=== PATIENT | female | born 1970 | race Hispanic/Latino ===

== ENCOUNTER 2017-06-28 12:21 | Emergency (ER) | payer SELFPAY ==
[2017-06-28 12:27] VITALS: BMI 36.8
[2017-06-28 12:35] VITALS: RESP 18; TEMP 99.7; O2SAT 98
[2017-06-28] MEDS ORDERED: Sodium Chloride 0.9% 1,000 ML IV STA ×2 (12:40→13:52)
[2017-06-28 13:08] LABS: BASO # 0.01 K/mm3 (0.0-2.0); BASO % 0.1 % (0.0-3.0); EOS # 0.1 (0.0-0.7); EOS % 1.4 % (1.5-5.0); GRAN # 7.18 (1.4-6.5); GRAN % 82.1 % (50.0-68.0); HEMOGLOBIN 15.4 gm/dL (12.0-16.0); LYMPH % 11.1 % (22.0-35.0); MEAN CELL VOLUME 89.5 fL (80.0-105.0); MEAN CORPUSCULAR HEMOGLOBIN 30.6 pg (25.0-35.0); MEAN CORPUSCULAR HGB CONC 34.2 g/dl (31.0-37.0); MEAN PLATELET VOLUME 10.1 fl (7.0-11.0); MONO # 0.5 (0.1-0.6); MONO % 5.3 % (1.0-6.0); PLATELET COUNT 255 10^3/uL (120.0-450.0); RBC 5.03 10^6/uL (3.5-6.1); RED CELL DISTRIBUTION WIDTH 13.2 % (11.5-14.5); WHITE BLOOD COUNT 8.7 10^3/ul (4.5-11.0)
[2017-06-28 13:08] LABS: URINE APPEARANCE CLEAR (CLEAR); URINE BILIRUBIN SMALL (NEGATIVE); URINE BLOOD NEGATIVE (NEGATIVE); URINE COLOR YELLOW (YELLOW); URINE GLUCOSE (UA) NEGATIVE (NEGATIVE); URINE LEUKOCYTE ESTERASE TRACE Leu/uL (NEGATIVE); URINE NITRATE NEGATIVE (NEGATIVE); URINE PROTEIN 30 mg/dL (<30 mg/dL)
[2017-06-28 13:17] LABS: URINE RBC 0 - 2 /hpf (0-2)
[2017-06-28 13:18] LABS: URINE BACTERIA SMALL (NEG)
[2017-06-28 13:26] LABS: ALB/GLOB RATIO 1.4 (1.1-1.8); ALBUMIN 4.4 g/dL (3.0-4.8); ALT/SGPT 27 U/L (7-56); AST/SGOT 26 U/L (15-39); BLOOD UREA NITROGEN 16 mg/dL (7-21); CALCIUM 9.3 mg/dL (8.4-10.5); GFR AFRICAN-AMERICAN > 60; GFR NON-AFRICAN AMERICAN > 60; LIPASE 54 U/L (23-300); MAGNESIUM 1.6 mg/dL (1.7-2.2)
--- NOTE | 2017-06-28 13:44 | ED PDOC ---
Arrival/HPI - General Chief Complaint: GI Problem Time Seen by Provider: 06/28/17 12:30 Historian: Patient - History of Present Illness Narrative History of Present Illness (Text): 06/28/17 13:45 Faith Lombardi is a 47 year old female with a history of hypertension and GERD, presents to the emergency department complaining of abdominal pain associated with nausea, vomiting and diarrhea since yesterday. Denies any sick contacts at home. She also complains of some throat discomfort for past few days. Denies any fever, chills, dizziness, chest pain, shortness of breath, urinary symptoms , or any other complaints at this time. 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 - Renal Hx Renal Disorder: No - Endocrine/Metabolic Hx Endocrine Disorders: No - Hematological/Oncological Hx Blood Disorders: No Other/Comment: MRSA - Integumentary Hx Dermatological Disorder: No - Musculoskeletal/Rheumatological Hx Musculoskeletal Disorders: Yes Hx Arthritis: Yes Hx Back Pain: Yes Hx Falls: No Hx Herniated Disk: Yes Other/Comment: WEAKNESS ON LEFT SIDE OF ARM DUE TO ARTHRITIS - Gastrointestinal Hx Gastrointestinal Disorders: Yes Hx Gastroesophageal Reflux: Yes Other/Comment: GERD - Genitourinary/Gynecological Hx Genitourinary Disorders: No Hx Urinary Tract Infection: Yes - Psychiatric Hx Psychophysiologic Disorder: No Hx Anxiety: Yes Hx Depression: No Hx Emotional Abuse: No Hx Physical Abuse: No Hx Substance Use: No - Past Surgical History Past Surgical History: No Previous - Surgical History Hx Cholecystectomy: Yes Hx Eye Surgery: Yes (right eye MRSA) Other/Comment: INSERTION AND REMOVAL OF PICCLINE;RIGHT EYE SURGERY - Anesthesia Hx Anesthesia: Yes Hx Anesthesia Reactions: No Hx Malignant Hyperthermia: No - Suicidal Assessment Feels Threatened In Home Enviroment: No Family/Social History - Physician Review Nursing Documentation Reviewed: Yes Family/Social History: No Known Family HX Smoking Status: Heavy Smoker > 10 Cigarettes Daily Hx Alcohol Use: Yes Frequency of alcohol use: Socially Hx Substance Use: No Hx Substance Use Treatment: No Allergies/Home Meds Allergies/Adverse Reactions: Allergies No Known Allergies Allergy (Verified 11/18/16 12:24) Home Medications: Home Meds Medication Instructions Recorded Confirmed Metoprolol Tartrate [Lopressor] 12.5 mg PO DAILY 02/29/16 06/28/17 Pantoprazole Sodium [Protonix] 40 mg PO DAILY 11/18/16 06/28/17 Review of Systems - Review of Systems Constitutional: Normal. absent: Fatigue, Fevers Respiratory: Normal. absent: SOB, Cough, Sputum Cardiovascular: Normal. absent: Chest Pain, Palpitations Gastrointestinal: Abdominal Pain, Diarrhea, Nausea, Vomiting Genitourinary Female: Normal. absent: Dysuria Neurological: Headache. absent: Dizziness Physical Exam Vital Signs Reviewed: Yes Vital Signs Temp Pulse Resp BP Pulse Ox 06/28/17 14:52 95 H 18 130/75 98 06/28/17 12:34 99.7 F H 125 H 18 152/75 H 98 Temperature: Febrile Blood Pressure: Hypertensive Pulse: Tachycardic Respiratory Rate: Normal Appearance: Positive for: Well-Appearing, Non-Toxic, Comfortable Pain Distress: None Mental Status: Positive for: Alert and Oriented X 3 - Systems Exam Head: Present: Atraumatic, Normocephalic Pupils: Present: PERRL Conjunctiva: Present: Normal Mouth: Present: Moist Mucous Membranes Respiratory/Chest: Present: Clear to Auscultation, Good Air Exchange. No: Respiratory Distress, Accessory Muscle Use Cardiovascular: Present: Regular Rate and Rhythm, Normal S1, S2. No: Murmurs Abdomen: Present: Tenderness (RUQ tenderness with guarding ), Normal Bowel Sounds, Guarding. No: Distention, Peritoneal Signs, Rebound Upper Extremity: Present: Normal Inspection. No: Cyanosis, Edema Lower Extremity: Present: Normal Inspection. No: Edema Neurological: Present: GCS=15, CN II-XII Intact, Speech Normal, Motor Func Grossly Intact, Normal Sensory Function Skin: Present: Warm, Dry, Normal Color. No: Rashes Psychiatric: Present: Alert, Oriented x 3, Normal Insight, Normal Concentration Medical Decision Making ED Course and Treatment: 06/28/17 13:48 Impression: A 47 year old female who presents to the emergency department complaining of abdominal pain associated with nausea, vomiting and diarrhea since yesterday. Differential Diagnosis included but are not limited to: gastroenteritis vs. dehydration Plan: -- Labs -- Pepecid -- Zofran -- IVF -- Urine Culture -- Urinalysis -- Reassess and disposition Progress Notes: 06/28/17 15:07 Patient feels completely better. Abdomen is soft and not tender. No nausea or vomiting. Tolerating PO fluids in the ED. She will make sure to follow up with her PMD in 2-3days. Advised to return to the ED if symptoms worsen or any other concern. - Lab Interpretations Lab Results: 06/28/17 12:59 06/28/17 12:59 Lab Results 06/28/17 13:04: Urine Color Yellow, Urine Appearance Clear, Urine pH 6.0, Ur Specific [place] 1.025, Urine Protein 30 H, Urine Glucose (UA) Negative, Urine Ketones Negative, Urine Blood Negative, Urine Nitrate Negative, Urine Bilirubin Small H, Urine Urobilinogen 1.0 H, Ur Leukocyte Esterase Trace H, Urine RBC 0 - 2, Urine WBC 1 - 3, Ur Epithelial Cells 4 - 5, Urine Bacteria Small 06/28/17 12:59: Sodium 138, Potassium 4.4, Chloride 102, Carbon Dioxide 25, Anion Gap 15, BUN 16, Creatinine 0.9, Est GFR ( Amer) > 60, Est GFR (Non- Af Amer) > 60, Random Glucose 118 H, Calcium 9.3, Magnesium 1.6 L, Total Bilirubin 0.6, AST 26, ALT 27, Alkaline Phosphatase 46, Total Protein 7.5, Albumin 4.4, Globulin 3.1, Albumin/Globulin Ratio 1.4, Lipase 54 06/28/17 12:59: WBC 8.7, RBC 5.03, Hgb 15.4, Hct 45.0, MCV 89.5, MCH 30.6, MCHC 34.2, RDW 13.2, Plt Count 255, MPV 10.1, Gran % 82.1 H, Lymph % (Auto) 11.1 L, [place] % (Auto) 5.3, Eos % (Auto) 1.4 L, Baso % (Auto) 0.1, Gran # 7.18 H, Lymph # 1.0 L, Blount # 0.5, Eos # 0.1, Baso # 0.01 I have reviewed the lab results: Yes Interpretation: All labs normal - Medication Orders Current Medication Orders: Discontinued Medications Famotidine (Pepcid) 20 mg IVP STAT STA Stop: 06/28/17 12:41 Last Admin: 06/28/17 12:57 Dose: 20 mg Sodium Chloride (Sodium Chloride 0.9%) 1,000 mls @ 1,000 mls/hr IV .Q1H STA Stop: 06/28/17 13:39 Last Admin: 06/28/17 12:55 Dose: 1,000 mls/hr Sodium Chloride (Sodium Chloride 0.9%) 1,000 mls @ 999 mls/hr IV .Q1H1M STA Stop: 06/28/17 14:52 Last Admin: 06/28/17 13:56 Dose: 999 mls/hr Ketorolac Tromethamine (Toradol) 30 mg IVP STAT STA Stop: 06/28/17 13:53 Last Admin: 06/28/17 13:57 Dose: 30 mg Ketorolac Tromethamine (Toradol) Confirm Administered Dose 30 mg .ROUTE .STK- MED ONE Stop: 06/28/17 13:58 Last Admin: 06/28/17 13:57 Dose: Ondansetron HCl (Zofran Inj) 4 mg IVP STAT STA Stop: 06/28/17 12:41 Last Admin: 06/28/17 12:57 Dose: 4 mg - Scribe Statement The provider has reviewed the documentation as recorded by the Myriam Mcgrath Provider Attestation: Provider Scribe Attestation: All medical record entries made by the Myriam were at my direction and personally dictated by me. I have reviewed the chart and agree that the record accurately reflects my personal performance of the history, physical exam, medical decision making, and the department course for this patient. I have also personally directed, reviewed, and agree with the discharge instructions and disposition. Disposition/Present on Arrival - Present on Arrival Any Indicators Present on Arrival: No History of DVT/PE: No History of Uncontrolled Diabetes: No Urinary Catheter: No History of Decub. Ulcer: No History Surgical Site Infection Following: None - Disposition Have Diagnosis and Disposition been Completed?: Yes Diagnosis: Gastroenteritis Disposition: HOME/ ROUTINE Disposition Time: 15:08 Patient Plan: Discharge Patient Problems: Current Active Problems Problem Status Onset Gastroenteritis Acute Condition: IMPROVED Discharge Instructions (ExitCare): Gastroenteritis (ED) Additional Instructions: Ms Lombardi, thank you for letting us take care of you today. Your provider was Dr. Raymond. You were treated for Gastroenteritis. The emergency medical care you received today was directed at your acute symptoms. If you were prescribed any medication, please fill it and take as directed. It may take several days for your symptoms to resolve. Return to the Emergency Department if your symptoms worsen, do not improve, or if you have any other problems. Please contact your doctor or call one of the physicians/clinics you have been referred to that are listed on the Patient Visit Information form that is included in your discharge packet. Bring any paperwork you were given at discharge with you along with any medications you are taking to your follow up visit. Our treatment cannot replace ongoing medical care by a primary care provider (PCP) outside of the emergency department. Thank you for allowing the [facility] team to be part of your care today. If you had an X-Ray or CT scan: A Radiologist will review the ED reading if any change in treatment is needed we will contact you. If you had a blood, urine, or wound culture: It will take several days for the results, if any change in treatment is needed we will contact you. If you had an STI test: It will take 48 hours for the results. Please call after 1 week if you have not heard back. Prescriptions: Ondansetron ODT [Zofran ODT] 4 mg PO Q6 #14 odt Ranitidine HCl [Zantac] 150 mg PO BID PRN #30 tablet PRN Reason: Pain, Mild (1-3) Referrals: [facility] [place] - Follow up with primary Forms: [employer] (Vietnamese), WORK NOTE
[2017-06-28 14:53] VITALS: BP 130/75; PULSE 95
== END 2017-06-28 15:12 | disposition home or self-care (01) ==
LOC: ED 12:21
DX: K52.9 Noninfective gastroenteritis and colitis, unspecified (principal)
CPT/HCPCS: 80053; 81001; 83690; 83735; 85025; 87086; 96361; 96374; 96375; 99285; J1885; J2405; J7040

== ENCOUNTER 2017-12-08 14:17 | Emergency (ER) | payer OTHER ==
[2017-12-08 14:19] VITALS: BMI 36.8
--- NOTE | 2017-12-08 15:02 | ED PDOC ---
Arrival/HPI - General Chief Complaint: GI Problem Time Seen by Provider: 12/08/17 14:30 Historian: Patient - History of Present Illness Narrative History of Present Illness (Text): 12/08/17 14:57 Faith Lombardi is a 47 year old female with a history of hypertension, esophagitis, and GERD, presents to the emergency department complaining of distal esophagus FB sensation x 2 days. Patient stated while eating potato, she felt potato got stuck on her lower esophagus. Patient has tried to pass it with liquid, but it feels sensation still there. Patient noted a EGD performed x 5 years ago, and she was Dx. GERD, recommended Protonix, which she admits forgetting to take it daily. Patient ate small amount of food since onset of symptoms. Denies CP, abdominal pain, sob, urinary symptoms, wheezing, dizziness, or abnormal gait. Patient admits smoking almost a pack a day, and last alcohol was 4 days ago. 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 - Renal Hx Renal Disorder: No - Endocrine/Metabolic Hx Endocrine Disorders: No - Hematological/Oncological Hx Blood Disorders: No Other/Comment: MRSA - Integumentary Hx Dermatological Disorder: No - Musculoskeletal/Rheumatological Hx Musculoskeletal Disorders: Yes Hx Arthritis: Yes Hx Back Pain: Yes Hx Falls: No Hx Herniated Disk: Yes Other/Comment: WEAKNESS ON LEFT SIDE OF ARM DUE TO ARTHRITIS - Gastrointestinal Hx Gastrointestinal Disorders: Yes Hx Gastroesophageal Reflux: Yes Other/Comment: GERD - Genitourinary/Gynecological Hx Genitourinary Disorders: No Hx Urinary Tract Infection: Yes - Psychiatric Hx Psychophysiologic Disorder: No Hx Anxiety: Yes Hx Depression: No Hx Emotional Abuse: No Hx Physical Abuse: No Hx Substance Use: No - Past Surgical History Past Surgical History: No Previous - Surgical History Hx Cholecystectomy: Yes Hx Eye Surgery: Yes (right eye MRSA) Other/Comment: INSERTION AND REMOVAL OF PICCLINE;RIGHT EYE SURGERY - Anesthesia Hx Anesthesia: Yes Hx Anesthesia Reactions: No Hx Malignant Hyperthermia: No - Suicidal Assessment Feels Threatened In Home Enviroment: No Family/Social History - Physician Review Nursing Documentation Reviewed: Yes Family/Social History: Other (noncontributory) Smoking Status: Heavy Smoker > 10 Cigarettes Daily Hx Alcohol Use: Yes Hx Substance Use: No Hx Substance Use Treatment: No Allergies/Home Meds Allergies/Adverse Reactions: Allergies seasonal Allergy (Uncoded 12/08/17 14:33) CONGESTION Home Medications: Home Meds Medication Instructions Recorded Confirmed Metoprolol Tartrate [Lopressor] 12.5 mg PO DAILY 02/29/16 12/08/17 Pantoprazole Sodium [Protonix] 40 mg PO DAILY 11/18/16 12/08/17 Review of Systems - Review of Systems Constitutional: Normal. absent: Fatigue, Weight Change, Fevers Eyes: Normal ENT: Normal. absent: Sore Throat Respiratory: Normal. absent: SOB, Cough Cardiovascular: Normal. absent: Chest Pain, Palpitations Gastrointestinal: Other (see hpi) Genitourinary Female: Normal Musculoskeletal: Normal Skin: Normal Neurological: Normal Endocrine: Normal Hemo/Lymphatic: Normal Psychiatric: Normal Physical Exam Vital Signs Temp Pulse Resp BP Pulse Ox 12/08/17 21:50 70 20 142/95 H 99 12/08/17 18:31 97.9 F 69 16 148/99 H 100 12/08/17 14:29 98.8 F 84 18 158/105 H 99 Temperature: Afebrile Blood Pressure: Hypertensive Pulse: Regular Respiratory Rate: Normal Appearance: Positive for: Well-Appearing, Non-Toxic, Comfortable Pain Distress: None Mental Status: Positive for: Alert and Oriented X 3 - Systems Exam Head: Present: Atraumatic, Normocephalic Pupils: Present: PERRL Extroacular Muscles: Present: EOMI Conjunctiva: Present: Normal Mouth: Present: Moist Mucous Membranes, Normal Tounge, Normal Teeth Pharnyx: Present: Normal. No: ERYTHEMA, EXUDATE, TONSILS ENLARGED Neck: Present: Normal Range of Motion, Trachea Midline. No: Meningeal Signs Respiratory/Chest: Present: Clear to Auscultation, Good Air Exchange. No: Respiratory Distress, Accessory Muscle Use Cardiovascular: Present: Regular Rate and Rhythm, Normal S1, S2. No: Murmurs Abdomen: Present: Normal Bowel Sounds, Other (obese). No: Tenderness, Distention, Peritoneal Signs, Rebound, Guarding Back: Present: Normal Inspection. No: CVA Tenderness Upper Extremity: Present: Normal Inspection, Normal ROM. No: Cyanosis, Edema Lower Extremity: Present: Normal Inspection, NORMAL PULSES. No: Edema Neurological: Present: GCS=15, CN II-XII Intact, Speech Normal Skin: Present: Warm, Dry, Normal Color. No: Rashes Psychiatric: Present: Alert, Oriented x 3, Normal Insight, Normal Concentration Medical Decision Making ED Course and Treatment: 12/08/17 21:29 Re-evaluation. Patient feels better. Discussed results and plan with patient who expresses understanding. All questions answered and there is agreement with the plan to discharge home with instructions. Patient stable for discharge. Return if symptoms persist or worsen. Patient tolerated PO challenge during the course of ED visit. Patient did not complain of nausea or vomiting in ED. Patient feels better and she wishes to be discharge home. CT scan of Chest shows no acute findings. Patient understood the plan to d/c home and to f/u pmd and GI doctor as out-pt. She also understood to return to emergency if symptoms worsen. Patient requested Protonix prescription for her GERD. Re-evaluation Time: 21:30 Reassessment Condition: Re-examined, Improved - Lab Interpretations Lab Results: 12/08/17 15:40 12/08/17 15:40 Lab Results 12/08/17 15:40: Sodium 139, Potassium 4.1, Chloride 101, Carbon Dioxide 26, Anion Gap 16, BUN 11, Creatinine 0.8, Est GFR ( Amer) > 60, Est GFR (Non- Af Amer) > 60, Random Glucose 86, Calcium 9.7, Total Bilirubin 0.7, AST 22, ALT 29, Alkaline Phosphatase 43, Total Protein 7.7, Albumin 4.4, Globulin 3.3, Albumin/Globulin Ratio 1.3 12/08/17 15:40: WBC 7.2, RBC 4.85, Hgb 14.8, Hct 44.7, MCV 92.2, MCH 30.5, MCHC 33.1, RDW 12.9, Plt Count 241, MPV 10.2, Gran % 52.0, Lymph % (Auto) 36.1 H, Cassia % (Auto) 7.9 H, Eos % (Auto) 3.7, Baso % (Auto) 0.3, Gran # 3.75, Lymph # 2.6, Cassia # 0.6, Eos # 0.3, Baso # 0.02 I have reviewed the lab results: Yes Interpretation: No clinic. lab abnormalty - RAD Interpretation Narrative RAD Interpretations (Text): 12/08/17 21:30 EXAM: CT Chest With Intravenous Contrast FINDINGS: Lungs and pleural spaces: Trachea and main bronchi are patent.There is no pneumothorax. Lungs are well-inflated. There is minimal peripheral groundglass opacity in the right upper lobe. There is minimal atelectasis and scarring at the lung bases. There are no effusions Heart and vasculature: Heart size is normal.There is trace fluid in pericardial recesses.Aorta and main pulmonary artery are normal in caliber. Mediastinum: The esophagus is almost completely collapsed. There is a small amount of air in portions of the esophagus.. No radiopaque foreign body is seen in the esophagus. There is a very small hiatal hernia. There are no pathologically enlarged mediastinal or hilar nodes. Thyroid: Thyroid is unremarkable Bones/joints: There are degenerative changes in the spine. Soft tissues: unremarkable Upper abdomen: There are no acute abnormalities in the visualized portion of the abdomen. There is fatty infiltration of the liver. Gallbladder is absent. There is mild renal nodularity. IMPRESSION: No acute disease in the chest, no esophageal foreign body identified; fatty liver Thank you for allowing us to participate in the care of your patient. Dictated and Authenticated by: Rosey Navas Radiology Orders: 12/08/17 14:55 CHEST W/CONTRAST [CT] Stat - Medication Orders Current Medication Orders: Discontinued Medications Famotidine (Pepcid 20mg/50ml Premix) 20 mg in 50 mls @ 100 mls/hr IVPB STAT STA Stop: 12/08/17 15:33 Last Admin: 12/08/17 15:50 Dose: 100 mls/hr eMAR Start Stop Document 12/08/17 15:50 OCS (Rec: 12/08/17 16:13 OCS [id number]) Intravenous Solution Start Date 12/08/17 Start Time 16:12 End Date 12/08/17 End time 16:42 Total Infusion Time 30 Disposition/Present on Arrival - Present on Arrival Any Indicators Present on Arrival: No History of DVT/PE: No History of Uncontrolled Diabetes: No Urinary Catheter: No History of Decub. Ulcer: No History Surgical Site Infection Following: None - Disposition Have Diagnosis and Disposition been Completed?: Yes Diagnosis: GERD (gastroesophageal reflux disease) Disposition: HOME/ ROUTINE Disposition Time: 21:35 Patient Plan: Discharge Condition: GOOD Discharge Instructions (ExitCare): Gastroesophageal Reflux Disease (ED), Esophageal Spasm (ED) Additional Instructions: Call Chemical Production Technician and primary care doctor in 1-2 days for revaluation. Call clinic if you don don't have doctor. Take medication as instructed. Eat healthy food, and avoid large meals. Return to emergency if symptoms worsen. Prescriptions: Pantoprazole Sodium [Protonix] 40 mg PO DAILY #14 ect Sucralfate [Carafate] 1 gm PO DAILY #1 bottle Referrals: Fabiola Lopez MD [Primary Care Provider] - Follow up with primary [facility] [Outside] - Follow up with primary [facility] [Outside] - Follow up with primary Andi Moise MD [Staff Provider] - Follow up with primary Forms: [employer] (Sinhala)
[2017-12-08] MEDS ORDERED: Famotidine 20mg/50ml 20 MG/50 ML BAG IVPB STA (15:04)
[2017-12-08 16:01] LABS: BASO # 0.02 K/mm3 (0.0-2.0); BASO % 0.3 % (0.0-3.0); EOS # 0.3 (0.0-0.7); EOS % 3.7 % (1.5-5.0); GRAN # 3.75 (1.4-6.5); HEMOGLOBIN 14.8 g/dL (12.0-16.0); LYMPH # 2.6 (1.2-3.4); LYMPH % 36.1 % (22.0-35.0); MEAN CELL VOLUME 92.2 fl (80.0-105.0); MEAN CORPUSCULAR HEMOGLOBIN 30.5 pg (25.0-35.0); MEAN CORPUSCULAR HGB CONC 33.1 g/dl (31.0-37.0); MEAN PLATELET VOLUME 10.2 fl (7.0-11.0); MONO # 0.6 (0.1-0.6); MONO % 7.9 % (1.0-6.0); RBC 4.85 10^6/uL (3.5-6.1); RED CELL DISTRIBUTION WIDTH 12.9 % (11.5-14.5); WHITE BLOOD COUNT 7.2 10^3/ul (4.5-11.0)
[2017-12-08 16:10] LABS: ALB/GLOB RATIO 1.3 (1.1-1.8); ALBUMIN 4.4 g/dL (3.0-4.8); ALT/SGPT 29 U/L (7-56); AST/SGOT 22 U/L (14-36); BLOOD UREA NITROGEN 11 mg/dL (7-21); CALCIUM 9.7 mg/dL (8.4-10.5); GFR AFRICAN-AMERICAN > 60; GFR NON-AFRICAN AMERICAN > 60
[2017-12-08] MEDS ORDERED: Iohexol 350 MG/100 ML VIAL ONE ×2 (18:06→23:27)
[2017-12-08 19:27] VITALS: TEMP 97.9
--- NOTE | 2017-12-08 21:28 | CT ---
EXAM: CT Chest With Intravenous Contrast EXAM DATE/TIME: 12/08/2017 2:55 PM CLINICAL HISTORY: 47 years old, female; Signs and symptoms; Mass, lump, or swelling in the chest; Additional info: Distal esophagus fb sensation TECHNIQUE: Axial computed tomography images of the chest with intravenous contrast. All CT scans at this facility use one or more dose reduction techniques, viz.: automated exposure control; ma/kV adjustment per patient size (including targeted exams where dose is matched to indication; i.e. head); or iterative reconstruction technique. Coronal and sagittal reformatted images were created and reviewed. CONTRAST: 100 mL of OMNI 350 administered intravenously. COMPARISON: There are no prior studies for comparison. FINDINGS: Lungs and pleural spaces: Trachea and main bronchi are patent.There is no pneumothorax. Lungs are well-inflated. There is minimal peripheral groundglass opacity in the right upper lobe. There is minimal atelectasis and scarring at the lung bases. There are no effusions Heart and vasculature: Heart size is normal.There is trace fluid in pericardial recesses.Aorta and main pulmonary artery are normal in caliber. Mediastinum: The esophagus is almost completely collapsed. There is a small amount of air in portions of the esophagus.. No radiopaque foreign body is seen in the esophagus. There is a very small hiatal hernia. There are no pathologically enlarged mediastinal or hilar nodes. Thyroid: Thyroid is unremarkable Bones/joints: There are degenerative changes in the spine. Soft tissues: unremarkable Upper abdomen: There are no acute abnormalities in the visualized portion of the abdomen. There is fatty infiltration of the liver. Gallbladder is absent. There is mild renal nodularity. IMPRESSION: No acute disease in the chest, no esophageal foreign body identified; fatty liver
[2017-12-08 21:57] VITALS: BP 142/95; PULSE 70; RESP 20; O2SAT 99
== END 2017-12-08 21:55 | disposition home or self-care (01) ==
LOC: ED 14:17
DX: K21.0 Gastro-esophageal reflux disease with esophagitis (principal); I10 Essential (primary) hypertension; F17.210 Nicotine dependence, cigarettes, uncomplicated
CPT/HCPCS: 71260; 80053; 85025; 96365; 99284; Q9967

== ENCOUNTER 2018-05-18 14:01 | Emergency (ER) | payer OTHER ==
[2018-05-18 14:01] VITALS: BMI 36.8
[2018-05-18 14:31] VITALS: RESP 18
--- NOTE | 2018-05-18 15:28 | ED PDOC ---
Arrival/HPI - General Chief Complaint: Pain, Chronic Time Seen by Provider: 05/18/18 14:33 Historian: Patient - History of Present Illness Narrative History of Present Illness (Text): 05/18/18 15:23 48yo female with pmhx of hypertension and cervical stenosis who present with right sided neck pain that is radiating down to her right arm. Notes history of same pain on her left shoulder secondary to bursitis and tendinitis. Pain started 3days ago. Described pain as cramping/sharp and worse with lateral movement of her neck and abduction of her right arm. States she have not taken any analgesia. Denies focal weakness, trauma, fever, nuchal ridigty, back pain, visual change, headache, chest pain, SOB, diaphoresis, nausea, abdominal pain, any other complaint. 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 - Renal Hx Renal Disorder: No - Endocrine/Metabolic Hx Endocrine Disorders: No - Hematological/Oncological Hx Blood Disorders: No Other/Comment: MRSA - Integumentary Hx Dermatological Disorder: No - Musculoskeletal/Rheumatological Hx Musculoskeletal Disorders: Yes Hx Arthritis: Yes Hx Back Pain: Yes Hx Falls: No Hx Herniated Disk: Yes Other/Comment: WEAKNESS ON LEFT SIDE OF ARM DUE TO ARTHRITIS - Gastrointestinal Hx Gastrointestinal Disorders: Yes Hx Gastroesophageal Reflux: Yes Other/Comment: GERD - Genitourinary/Gynecological Hx Genitourinary Disorders: No Hx Urinary Tract Infection: Yes - Psychiatric Hx Anxiety: Yes Hx Substance Use: No - Past Surgical History Past Surgical History: No Previous - Surgical History Hx Cholecystectomy: Yes Hx Eye Surgery: Yes (right eye MRSA) Other/Comment: INSERTION AND REMOVAL OF PICCLINE;RIGHT EYE SURGERY - Anesthesia Hx Anesthesia: Yes Hx Anesthesia Reactions: No Hx Malignant Hyperthermia: No - Suicidal Assessment Feels Threatened In Home Enviroment: No Family/Social History - Physician Review Nursing Documentation Reviewed: Yes Family/Social History: Unknown Family HX Smoking Status: Heavy Smoker > 10 Cigarettes Daily Hx Alcohol Use: Yes Hx Substance Use: No Hx Substance Use Treatment: No Allergies/Home Meds Allergies/Adverse Reactions: Allergies seasonal Allergy (Uncoded 05/18/18 14:32) CONGESTION Home Medications: Home Meds Medication Instructions Recorded Confirmed Metoprolol Tartrate [Lopressor] 12.5 mg PO DAILY 02/29/16 05/18/18 Hydrochlorothiazide [Microzide] 1 tab PO DAILY 05/18/18 05/18/18 Review of Systems - Physician Review All systems were reviewed & negative as marked: Yes - Review of Systems Constitutional: Normal Eyes: Normal ENT: Normal Respiratory: Normal Cardiovascular: Normal Gastrointestinal: Normal Genitourinary Female: Normal Musculoskeletal: Arthralgias (right shoulder), Neck Pain Skin: Normal Neurological: Normal Endocrine: Normal Hemo/Lymphatic: Normal Psychiatric: Normal Physical Exam Vital Signs Reviewed: Yes Vital Signs Temp Pulse Resp BP Pulse Ox 05/18/18 16:40 98 F 89 18 150/82 99 05/18/18 15:41 89 18 152/86 H 98 05/18/18 14:28 97.9 F 95 H 18 157/98 H 98 Temperature: Afebrile Blood Pressure: Normal Pulse: Regular Respiratory Rate: Normal Appearance: Positive for: Well-Appearing, Non-Toxic, Comfortable Pain Distress: None Mental Status: Positive for: Alert and Oriented X 3 - Systems Exam Head: Present: Atraumatic, Normocephalic Pupils: Present: PERRL Extroacular Muscles: Present: EOMI Conjunctiva: Present: Normal Mouth: Present: Moist Mucous Membranes Neck: Present: Paraspinal Tenderness (Right paracervical tenderness). No: Normal Range of Motion (Decrease on lateral movement to the right secondary to pain), MIDLINE TENDERNESS Respiratory/Chest: Present: Clear to Auscultation, Good Air Exchange. No: Respiratory Distress, Accessory Muscle Use Cardiovascular: Present: Regular Rate and Rhythm, Normal S1, S2. No: Murmurs Abdomen: No: Tenderness, Distention, Peritoneal Signs Back: Present: Normal Inspection Upper Extremity: Present: NORMAL PULSES, Tenderness (Right proximal shoulder), Neurovascularly Intact. No: Cyanosis, Edema, Normal ROM (Limited on abduction up to 75degree), Swelling Lower Extremity: Present: Normal Inspection. No: Edema Neurological: Present: GCS=15, CN II-XII Intact, Speech Normal Skin: Present: Warm, Dry, Normal Color. No: Rashes Psychiatric: Present: Alert, Oriented x 3, Normal Insight, Normal Concentration Medical Decision Making ED Course and Treatment: 05/19/18 01:22 PT presented for stated history. Her pain was controlled in ED with medication. right shoulder xray - No acute fracture/finding Result was DW the pt. she was DC home with Naprosyn, flexeril and lidoderm. Referred to ortho. Arm was placed on sling and pt was advised to move arm. she have no focal neurological deficit. No chest pain. No meningeal sign. - RAD Interpretation Radiology Orders: 05/18/18 14:44 SHOULDER RIGHT [RAD] Stat - Medication Orders Current Medication Orders: Discontinued Medications Cyclobenzaprine HCl (Flexeril) 10 mg PO STAT STA Stop: 05/18/18 14:46 Last Admin: 05/18/18 15:13 Dose: 10 mg Ketorolac Tromethamine (Toradol) 60 mg IM STAT STA Stop: 05/18/18 14:45 Last Admin: 05/18/18 15:12 Dose: 60 mg MAR Pain Assessment Document 05/18/18 15:12 LA (Rec: 05/18/18 15:12 LA [id number]) Pain Reassessment Is this a pain reassessment? No Sleep Is patient sleeping during reassessment? No Presence of Pain Presence of Pain Yes Pain Scale Used Pain Scale Used Numeric Location Pain Location Body Site Neck Description Intensity of Pain at present 7 IM Administration Charges Document 05/18/18 15:12 LA (Rec: 05/18/18 15:12 LA [id number]) Injection Site MAR Injection Site Right Gluteus [place] Charges for Administration # of IM Administrations 1 Disposition/Present on Arrival - Present on Arrival Any Indicators Present on Arrival: No History of DVT/PE: No History of Uncontrolled Diabetes: No Urinary Catheter: No History of Decub. Ulcer: No History Surgical Site Infection Following: None - Disposition Have Diagnosis and Disposition been Completed?: Yes Diagnosis: Tendinitis, Neck pain Disposition: HOME/ ROUTINE Disposition Time: 16:20 Patient Plan: Discharge Condition: STABLE Discharge Instructions (ExitCare): Tendonitis, Neck Pain, Chronic Neck Pain (DC ) Additional Instructions: Follow up with your Doctor/Orthopedist Return to ED for any new or worsening symptoms Prescriptions: Cyclobenzaprine [Cyclobenzaprine HCl] 10 mg PO TID #12 tab Lidocaine 5% [Lidoderm] 1 patch TOP BID #10 patch Naproxen [Naprosyn] 500 mg PO BID #20 tablet Referrals: Patricio Marroquin MD [Staff Provider] - Follow up with primary Forms: [facility] ([place])
[2018-05-18 15:42] VITALS: PULSE 89
--- NOTE | 2018-05-18 16:14 | RAD ---
PROCEDURE: Radiographs of the Right Shoulder HISTORY: shoulder pain COMPARISON: No prior. FINDINGS: BONES: Normal. No fracture. JOINTS: Normal. Glenohumeral and acromioclavicular joints preserved. No osteoarthritis. SOFT TISSUES: Normal. OTHER FINDINGS: None. IMPRESSION: Normal radiographs of the right shoulder.
[2018-05-18 16:54] VITALS: BP 150/82; TEMP 98; O2SAT 99
== END 2018-05-18 16:40 | disposition home or self-care (01) ==
LOC: ED 14:01
DX: M54.2 Cervicalgia (principal); M77.8 Other enthesopathies, not elsewhere classified; I10 Essential (primary) hypertension; F17.210 Nicotine dependence, cigarettes, uncomplicated
CPT/HCPCS: 73030; 96372; 99283; J1885

== ENCOUNTER 2019-04-21 08:46 | Outpatient (CLI) | payer OTHER | END 2019-04-21 08:47 | disposition home or self-care (01) | LOC: LAB 08:46 ==